=== PATIENT | male | born 1955 | race Caucasian/White ===

== ENCOUNTER 2020-02-17 22:40 | Emergency (ER) | payer OTHER ==
[~2020-02-17] VITALS: Ht 172.7 cm; Wt 83.9 kg
[2020-02-17 22:50] VITALS: BP 130/74
--- NOTE | 2020-02-17 22:50 | NUR ---
ED Nurse Note: Pt walked into ED for c/o diffuse rash on body with extreme itching. Pt states he believes it to be from bed bugs at his sober living facility. Pt is aaox4, breathing is normal and unlabored. Pt has no other complaints at this time. Pt is ambulatory with steady gait.
[2020-02-17] MEDS ORDERED: PERMETHRIN60 GM TOPIC (23:10)
[2020-02-17] MEDS ORDERED: HYDROCORTISONE28 G2 TP (23:10)
[2020-02-17] MEDS ORDERED: BENADRYL25 MG ORAL (23:10)
[2020-02-17 23:15] VITALS: BP 128/75
--- NOTE | 2020-02-17 23:15 | NUR ---
ER DISCHARGE NOTE: Patient is cleared to be discharged per ERMD, pt is aox4, on room air, with stable vital signs. pt was given dc and prescription instructions, pt was able to verbalize understanding, pt id band removed. pt is able to ambulate with steady gait. pt took all belongings.
--- NOTE | 2020-02-17 23:15 | NUR ---
ED Nurse Note: ERMD aware of pt HR upon DC.
--- NOTE | 2020-02-17 23:17 | Emergency Room Report ---
History of Present Illness General Chief Complaint: Skin Rash/Abscess Source: Patient Present Illness HPI Disclaimer: Please note that this report is being documented using DRAGON technology. This can lead to erroneous entry secondary to incorrect interpretation by the dictating instrument. HPI: 64-year-old male presents for evaluation of itchy rash. States he has had a rash over his ankles and forearms as well as lower back for the past few days. Seen at another hospital yesterday prescribed permethrin cream which he applied and left on for the day. Reports persistent itching. He is used Benadryl intermittently. Denies any skin breakdown, fever, chills, discharge, purulent drainage. Lives in sober living and states he was sitting on an old mattress. Concerned he has bedbugs and states he washed all his clothing as instructed. Allergies: Coded Allergies: No Known Allergies (Unverified , 02/17/20) COVID-19 Screening Contact w/high risk pt: No Experienced COVID-19 symptoms?: No COVID-19 Testing performed COMMUNICATIONS DEPARTMENT HEAD: No - + covid in February, treated Nursing Documentation-PMH Hx Hypertension: Yes Hx Diabetes: Yes Review of Systems All Other Systems: negative except mentioned in HPI Physical Exam Vital Signs Date Time Temp Pulse Resp B/P (MAP) Pulse Ox O2 Delivery O2 Flow Rate FiO2 02/17/20 22:56 98.4 120 18 130/74 (92) 97 Room Air General: Awake and alert, appears moderately uncomfortable, itching profusely. HEENT: NC/AT. EOMI. Resp: Normal work of breathing Skin: Multiple raised red lesions over the lower extremities and a linear orientation. Also present on the upper extremities more scattered. Scattered lesions over the lower back as well. No vesicles. Nikolsky negative. Nonfluctuant. No drainage. No bleeding. MSK: Normal tone and bulk. Moving all extremities. No obvious deformity. Neuro: Awake and alert. Mentating appropriately Medical Decision Making Diagnostic Impression: Primary Impression: Scabies ER Course Is a 62-year-old male presenting for evaluation of itchy rash over the past few days. Patient was treated with permethrin cream however will prescribe another tube as he should be treated again should his symptoms fail to improve in 1 to 2 weeks. Will re-prescribe Benadryl and hydrocortisone cream for control of his pruritus. No evidence of [place], Dunlap-Brent's, zoster or other concerning skin findings. Most consistent with either bedbugs or scabies. Patient stable for outpatient follow-up. Last Vital Signs Date Time Temp Pulse Resp B/P (MAP) Pulse Ox O2 Delivery O2 Flow Rate FiO2 02/17/20 22:56 98.4 120 18 130/74 (92) 97 Room Air Disposition: HOME, SELF-CARE Condition: Stable Scripts Hydrocortisone 1% Oint (Hydrocortisone 1% Oint*) Y Oint 28 GM TP BID PRN for Itching, #1 TUB Prov: Matthieu Aviles MD 02/17/20 Diphenhydramine Hcl* (BENADRYL*) 25 Mg Capsule 25 MG ORAL Q6H PRN for Itching for 5 Days, #20 CAP Prov: Matthieu Aviles MD 02/17/20 Permethrin* (ELIMITE*) 60 Gm Cream..g. 1 APPLIC TOPIC ONCE, #1 TUBE 0 Refills Apply cream from head to toe; leave on for 8-14 hours before washing off with water Prov: Matthieu Aviles MD 02/17/20 Referrals: [facility]. [facility] Patient Instructions: Pruritus, Bedbugs Additional Instructions: Please follow-up with your primary care doctor in the next 1 to 3 days to discuss this emergency department visit and for reevaluation. If you have any new or worsening symptoms please return to the emergency department for reevaluation. Permethrin cream for all family members -Apply from neck down -Leave on for 8-12hr before washing off -May reapply in 1-2wks if incomplete effect Please note that this report is being documented using EZ4U technology. This can lead to erroneous entry secondary to incorrect interpretation by the dictating instrument. Matthieu Aviles MD Feb 17, 2020 23:17
== END 2020-02-17 23:15 | disposition home or self-care (01) ==
LOC: EMR 23:15
DX: B86 Scabies (principal); I10 Essential (primary) hypertension; E11.9 Type 2 diabetes mellitus without complications
CPT/HCPCS: 99282